=== PATIENT | male | born 1965 | race Caucasian/White ===

== ENCOUNTER 2018-12-21 04:00 | Inpatient (IN) | payer BC ==
[2018-12-21] MEDS ORDERED: Ticagrelor* 90 MG TAB PO ONE ×2 (04:03→04:09)
[2018-12-21] MEDS ORDERED: Heparin VIAL(*) 5000 UNITS/ML VIAL (FIVE THOUSAND) ONE (04:07)
--- NOTE | 2018-12-21 04:11 | ED ---
HPI Chest Pain - HPI Summary HPI Summary: STEMI called at 0352 ETA 10 minutes. The patient is a 53 y/o M arriving by ambulance with chief complaint of sudden onset mid-sternal burning and sharp CP starting at 0200 this morning. He reports that he was on his way to the ED after the pain started but was unable to handle it so his stopped the car, and they called EMS. EMS reports that the patient became unresponsive and went into Vfib so he was administered one shock back into NSR. He was also given one 324mg ASA, 4 doses of NTG, and 150mL Amiodarone. He was sating at 96% on room air before shock and then 90% after shock. He states that he had a recent similar episode of pain but the sharpness wasnt present then, and now the pain radiates into the left arm with numbness and tingling. No cardiac hx. PMHx: asthma. Current every day smoker. - History of Current Complaint Hx Obtained From: Patient, EMS Onset/Duration: Started Hours Ago - at 0200, Still Present Time of Onset: 02:00 Timing: Lasting Hours Initial Severity: Severe Current Severity: Severe Pain Intensity: 10 Pain Scale Used: 0-10 Numeric Chest Pain Location: Mid Sternal Chest Pain Radiates: Yes Chest Pain Radiates To:: Arm Character: Burning, Sharp/Stabbing Aggravating Factor(s): Nothing Alleviating Factor(s): Nothing Associated Signs and Symptoms: Positive: Chest Pain, Numbness - arm, Tingling - arm - Allergy/Home Medications Allergies/Adverse Reactions: Allergies Allergy/AdvReac Type Severity Reaction Status Date / Time nabumetone Allergy Hives Verified 12/21/18 06:00 PMH/Surg Hx/FS Hx/Imm Hx Endocrine/Hematology History: Denies: Hx Diabetes Cardiovascular History: Denies: Hx Hypertension Respiratory History: Reports: Hx Asthma - Surgical History Surgical History: None Surgery Procedure, Year, and Place: none Infectious Disease History: No Infectious Disease History: Denies: Traveled Outside the [place] in Last 30 Days - Family History Known Family History: Negative: Diabetes - Social History Lives: With Family Alcohol Use: None Hx Substance Use: No Substance Use Type: Reports: None Hx Tobacco Use: Yes Smoking Status (MU): Current Every Day Smoker Review of Systems Positive: Chest Pain - burning, sharp pain Positive: Numbness - and tingling in arms All Other Systems Reviewed And Are Negative: Yes Physical Exam - Summary Physical Exam Summary: Appearance: Well-appearing, Well-nourished, lying in bed comfortably Skin: Mildly diaphoretic, Warm, no obvious rash Eyes: sclera anicteric, no conjunctival pallor ENT: mucous membranes moist, pharynx appears normal Neck: Supple, nontender Respiratory: Clear to auscultation, no signs of respiratory distress Cardiovascular: Normal S1, S2. No murmurs. Normal distal pulses in tibial and radial bilaterally. Abdomen: Soft, nontender, normal active bowel sounds present Musculoskeletal: Normal, Strength/ROM Intact Neurological: A&Ox3, awake and alert, mentation is normal, speech is fluent and appropriate Psychiatric: affect is normal, does not appear anxious or depressed Triage Information Reviewed: Yes Vital Signs Reviewed: Yes Diagnostics - Laboratory Result Diagrams: 12/22/18 04:03 12/24/18 05:22 Lab Statement: Any lab studies that have been ordered have been reviewed, and results considered in the medical decision making process. - Radiology CXR Radiology Interpretation Completed By: ED Physician Summary of Radiographic Findings: Irregular opacities in the right lower lobe of unclear significance. ED physician has interpreted this report. Pending official read. - EKG 0404 Cardiac Rate: NL - 75 bpm EKG Rhythm: Sinus Rhythm Summary of EKG Findings: NSR at 75 bpm. Anteroseptal infarct, old. No STEMI. Chest Pain Course/Dx - Course Course Of Treatment: STEMI called at 0352 ETA 10 minutes. Patient is a 53 y/o M arriving by ambulance with cc of sudden onset mid-sternal burning and sharp CP that radiates to the left arm with numbness and tingling starting at 0200 this morning while on his way to the ED. Patient became unresponsive and EMS administered one successful shock to convert patient out of vfib. Also given one 324mg ASA, 4 doses of NTG, and 150mL Amiodarone en route. Upon physical exam , the patient exhibits mild diaphoresis. In the ED course, the patient was administered Heparin and Brilinta. Dr. Hinojosa, cardiology, in the ED upon patients arrival at 0358. EKG at 0404 reveals NSR at 75 bpm with old anteroseptal infarct, no STEMI. Chest x-ray reveals irregular opacities in the right lower lobe of unclear significance. Blood work reveals lactic acid of 4.5 , myoglobin of 299.0, and troponin of 0.10. Patient accepted for admission by Dr. Hinojosa. Patient agrees with this plan. 25 minutes of CCT. - Diagnoses Provider Diagnoses: STEMI (ST elevation myocardial infarction) During the Visit The Following Alert/Code Occurred: STEMI - called at 0352 with 10 mintues ETA - Provider Notifications Discussed Care Of Patient With: Moises Hinojosa - cardiology Time Discussed With Above Provider: 03:58 Instructed by Provider To: Other - Dr. Hinojosa in the ED upon patient's arrival. Patient accepted for admission. Discharge - Sign-Out/Discharge Documenting (check all that apply): Patient Departure - Patient is accepted for admission by Dr. Hinojosa. Patient Received Moderate/Deep Sedation with Procedure: No - Discharge Plan Condition: Stable Disposition: ADMITTED TO [facility] - Billing Disposition and Condition Condition: STABLE Disposition: Admitted to [facility] - Attestation Statements Document Initiated by Jeriibe: Yes Documenting Scribe: Violet Luz Provider For Whom Luis Armando is Documenting (Include Credential): Dr. Jordi Barber MD Scribe Attestation: Violet Acosta, scribed for Dr. Jordi Barber MD on 12/25/18 at 0203. Scribe Documentation Reviewed: Yes Provider Attestation: The documentation as recorded by the Violet whaley accurately reflects the service I personally performed and the decisions made by me, Dr. Jordi Barber MD Status of Scribe Document: Viewed
[2018-12-21] MEDS ORDERED: Heparin for STEMI(*) 5,000 UNITS/ML 1 ML VIAL IV ONE (04:17)
[2018-12-21] MEDS ORDERED: Heparin(*) 1000 UNIT/ML 10 ML VIAL CATH LAB IV ONE (04:17)
[2018-12-21] MEDS ORDERED: nitroGLYCERIN DRIP* 25,000 MCG/250 ML BTL ONE (04:18)
[2018-12-21] MEDS ORDERED: Lidocaine 1% INJ* 10 MG/ML 30 ML SDV ONE (04:18)
[2018-12-21] MEDS ORDERED: VERAPAMIL 2.5 MG/ML 2 ML VIAL ** 5 mg/2 ml ONE (04:18)
[2018-12-21] MEDS ORDERED: Heparin 2 UNITS/ML IVPREMIX* 3,000 UNIT/1,500 ML BAG IV ONE (04:19)
[2018-12-21] MEDS ORDERED: Iohexol 350 (CONTRAST) 200 ML MDV IV ONE (04:20)
[2018-12-21] MEDS ORDERED: Heparin DRIP 25,000 UNITS(*) 25,000 UNITS/500 ML BAG ONE (04:23)
[2018-12-21] MEDS ORDERED: Amiodarone 360 MG IVPREMIX* 360 MG/200 ML BAG IV ONE ×2 (04:23)
[2018-12-21] MEDS ORDERED: Heparin DRIP 25,000 UNITS(*) 25,000 UNITS/500 ML BAG IV SCH (04:30)
[2018-12-21 04:38] LABS: Activated Partial Thrombo Time 33.4 seconds (26.0-38.0); INR 0.96 (0.82-1.09)
[2018-12-21] MEDS ORDERED: Midazolam* 1 MG/ML 5 ML VIAL (5 MG) ONE (04:42)
[2018-12-21] MEDS ORDERED: fentaNYL* 50 MCG/ML 2 ML VIAL (100 MCG VIAL) ONE (04:42)
[2018-12-21 04:45] LABS: ABS Basophils 0.1 10^3/ul (0-0.2); ABS Eosinophils 0.1 10^3/ul (0-0.6); ABS Monocytes 0.5 10^3/ul (0-0.8); ABS Neutrophils 7.6 10^3/ul (1.5-7.7); Eosinophil % 1.3 %; Hematocrit 49 % (42-52); Hemoglobin 17.3 g/dL (14.0-18.0); Lymphocyte % 19.5 %; Mean Corpuscular HGB Conc 35 g/dL (31-36); Mean Corpuscular Hemoglobin 33 pg (27-31); Mean Corpuscular Volume 92 fL (80-94); Mean Platelet Volume 8.7 fL (7.4-10.4); Nucleated Red Blood Cells % 0.1; Platelet Count 236 10^3/uL (150-450); Red Blood Count 5.31 10^6 /uL (4.18-5.48); Red Cell Distribution Width 14 % (10-15); White Blood Count 10.3 10^3/uL (3.5-10.8)
[2018-12-21 04:50] LABS: ALT 18 U/L (7-52); AST 16 U/L (13-39); Albumin 4.1 g/dL (3.2-5.2); Albumin/Globulin Ratio 1.6 (1-3); Alkaline Phosphatase 91 U/L (34-104); Anion Gap 12 mmol/L (2-11); BUN/Creatinine Ratio 11.5 (8-20); Blood Urea Nitrogen 12 mg/dL (6-24); CO2 Carbon Dioxide 18 mmol/L (22-32); Calcium 9.3 mg/dL (8.6-10.3); Chloride 107 mmol/L (101-111); Creatine Kinase 71 U/L (10-223); EGFR African American 90.1 (>60); EGFR Non-African American 74.4 (>60); Globulin 2.6 g/dL (2-4); Glucose 168 mg/dL (70-100); LDL Cholesterol Direct 180 mg/dL; Sodium 137 mmol/L (135-145); Total Protein 6.7 g/dL (6.4-8.9)
[2018-12-21 04:55] LABS: CKMB ng/mL 5.3 ng/mL (0.6-6.3)
[2018-12-21] MEDS ORDERED: Acetaminophen TAB* 325 MG PO PRN ×2 (05:42→19:49)
[2018-12-21] MEDS ORDERED: Nitroglycerin TAB 0.4 MG* 0.4 MG TAB SL PRN (05:42)
[2018-12-21] MEDS ORDERED: Docusate CAP* 100 MG PO PRN (05:42)
[2018-12-21] MEDS ORDERED: Ondansetron INJ* 2 MG/ML VIAL IV PRN (05:42)
[2018-12-21] MEDS ORDERED: NS 0.9% 1000 ML** 1,000 ML IV SCH (05:45)
[2018-12-21] MEDS ORDERED: Atorvastatin* 80 MG TAB PO ONE (05:53)
[2018-12-21] MEDS: Metoprolol Tartrate TAB* 25 MG PO SCH ×2 (06:22→14:28)
[2018-12-21] MEDS ORDERED: nitroGLYCERIN DRIP* 25,000 MCG/250 ML BTL IV SCH (07:00)
[2018-12-21] MEDS ORDERED: Perflutren Lipid Microsphere* 3 ML VIAL ONE (08:35)
--- NOTE | 2018-12-21 08:55 | HP ---
CC: Dr. Michael Little* ADMISSION HISTORY AND PHYSICAL: DATE OF ADMISSION: 12/21/18 CHIEF COMPLAINT: The patient with chest discomfort. EKG in the field documenting anterior wall ST segment elevation CA with VFib arrest, successfully shocked back to sinus rhythm. HISTORY OF PRESENT ILLNESS: The patient is a 53-year-old gentleman with no prior known cardiac history. Specifically, he denies any history of myocardial infarction, congestive heart failure, or significant heart rhythm disturbance. The patient states that some 2 or 3 days ago he had developed similar episode of chest heaviness feeling that he believes occurred at nighttime. Today, at around 2 in the morning, he woke up and had significant chest heaviness and tightness. He thought he had reflux and tried antacids. It worsened to the point that he asked his to drive him to the hospital. As he was driving, the symptoms got worse. They called the paramedics. The paramedics met them in the field. They did an EKG and found a ST segment elevation anterior wall myocardial infarction. The patient subsequently had a ventricular fibrillation arrest according to the emergency room physician in the field. They shocked him back to sinus rhythm and he gained consciousness. He received aspirin full dose therapy and was brought into the emergency room. In the emergency room, he was still having chest discomfort, although a second EKG done in the field after the VFib arrest had showed marked improvement of the ST elevations. In the emergency room, this continued to be the case with a repeat EKG that showed improvement. In the emergency room, he was given Brilinta, heparin bolus, he was started on IV nitroglycerin and the risks and benefits of cardiac catheterization were explained. He understood them and wished to proceed. Cardiac risk factors include no known history of diabetes, no known history of hypertension. He states that he thinks he has an increased cholesterol, but has not been on medical management for that. He does smoke and has no family history of early coronary artery disease. PAST MEDICAL HISTORY: Includes diverticulitis for which he eventually had surgical therapy for this. He also has a history of DVT that occurred after that hospitalization when he was at bed rest following surgery. He also has history of allergies and asthma. FAMILY HISTORY: Negative for significant premature coronary artery disease according to the patient. SOCIAL HISTORY: He smokes cigarettes. He drinks alcohol. REVIEW OF SYSTEMS: Pertinent toward proceeding emergently to the cardiovascular laboratory. Negative history of hematochezia. Negative hematuria. Negative hematemesis. No history of stroke or TIA. No history of contrast allergy and no known history of kidney disease. PHYSICAL EXAMINATION GENERAL: The patient was still with chest discomfort, albeit better than when he woke up in the morning. VITAL SIGNS: When I saw him in the emergency room, blood pressure 107/73, pulse 74, respirations 20, O2 saturation 94% on room air. NECK: Had no increased JVP. Carotids had good upstroke and volume. LUNGS: Had mildly coarse breath sounds bilaterally, but no active rales, rhonchi, or wheezes. HEART: Revealed no palpable heaves or thrills. Normal S1, S2. I could not appreciate a significant systolic or diastolic murmur. ABDOMEN: Soft, nontender without organomegaly. EXTREMITIES: Without edema. The femoral pulses were intact. Radial pulses intact. NEURO: The patient seemed to be slightly lethargic, but alert enough and cognizant of everything that was going on. MUSCULOSKELETAL: He moved all extremities appropriately. PSYCHOLOGICAL: The patient with normal affect. DIAGNOSTIC STUDIES/LAB DATA: Electrocardiogram by the EMS documented ST segment elevations anteriorly; repeat by EMS showed improvement of them, but still somewhat present. In the emergency room, there were Q waves in V1 and V2 with minimal ST segment elevation with biphasic T waves in the other anterior leads with T wave inversion in I and aVL with PVCs. OVERALL ASSESSMENT: Sumanth presents now having been in the throes of an acute ST segment elevation, myocardial infarction with continued chest discomfort, albeit better and an improving EKG. Most likely, he spontaneously re-perfused, and with re-perfusion, developed ventricular fibrillation arrest, which he was successfully shocked out of and given an amiodarone bolus. We will put him on an amiodarone drip and he has already received heparin, Brilinta, and aspirin is on low-dose IV nitro and we will proceed to the cardiovascular laboratory with further management pending results of the catheterization. The risks and benefits were explained to him with his present. He understands them and is willing to proceed. [id number]/[facility] #: [id number] MTDD
[2018-12-21] MEDS ORDERED: Amiodarone 360 MG IVPREMIX* 360 MG/200 ML BAG IV SCH (10:20)
--- NOTE | 2018-12-21 10:22 | ECHO ---
*[facility]* [place] [address] Fax #: [phone] Transthoracic Echocardiogram Patient: Sumanth Nath : 1965 Study Date: 12/21/2018 Age: 53 Gender: M HR: 68 bpm Height: 67 in /170.2 cm BSA: 1.94 m^2 Weight: 181.6 lb /82.6 kg BMI: 28.5 kg/m^2 *Lumber Driver: * Jami Victoria RDCS RN *Referring Physician: * Moises Hinojosa MD *Reading Physician: * Jesus Chen MD Indications: Myocardial Infarction (new). History: Asthma. Risk factors: Current tobacco use. Labs, prior tests, procedures, and surgery: Catheterization with coronary intervention (12/21/2018). Conclusions Summary: - Left ventricle: The cavity size is normal. Wall thickness is mildly increased. Systolic function is moderately reduced. The estimated ejection fraction is 35% with wall motion abnormalities as described within the report. - Right ventricle: The cavity size is normal. Systolic function is mildly reduced. - Left atrium: The atrium is normal in size. - Mitral valve: There is mild regurgitation. - Pulmonary arteries: Systolic pressure is mildly increased, estimated to be 39 mm Hg. Recommendations: None prior for comparison at time of interpretation. Study data: Transthoracic echocardiogram. Procedure: Transthoracic echocardiography was performed. Image quality was fair. The study was technically limited due to Smoking history. Intravenous Definity 3.5 ml was administered for image enhancement. Complete 2D, spectral Doppler, and color flow Doppler. Location: Bedside. Patient status: Inpatient. Patient room number: ICU 2. Rhythm: Normal sinus rhythm. Findings Left ventricle: The cavity size is normal. Wall thickness is mildly increased. Systolic function is moderately reduced. The estimated ejection fraction is 35% with wall motion abnormalities as described within the report. Regional wall motion abnormalities: Hypokinesis of the mid-apicalanteroseptal myocardium. Hypokinesis of the mid-apicalanterolateral myocardium. Hypokinesis of the apicalinferior myocardium. Hypokinesis of the mid-apicalanterior myocardium. Hypokinesis of the apicallateral myocardium. Akinesis of the mid-apical anterior and apical myocardium; severe hypokinesis of the mid anterolateral and apical septal myocardium; moderate hypokinesis of the mid anteroseptal myocardium; mild hypokinesis of the mid inferoseptal and apical inferior myocardium. Doppler parameters are consistent with abnormal left ventricular relaxation (grade 1 diastolic dysfunction). Right ventricle: The cavity size is normal. Systolic function is mildly reduced. Left atrium: The atrium is normal in size. Right atrium: The atrium is normal in size. Mitral valve: The leaflets are mildly thickened. There is no evidence of stenosis. There is mild regurgitation. Aortic valve: Not well visualized. The valve is probably trileaflet. The leaflets are mildly thickened and mildly calcified. There is no evidence of stenosis. There is no regurgitation. Tricuspid valve: The valve is structurally normal. There is no evidence of stenosis. There is mild regurgitation. Pulmonic valve: Not well visualized. There is no evidence of stenosis. There is no significant regurgitation. Aorta: Aortic root: The aortic root is not dilated. Ascending aorta: The ascending aorta is not dilated. Aortic arch: The aortic arch is not dilated. Pericardium: There is no pericardial effusion. Pulmonary arteries: Not well visualized. Systolic pressure is mildly increased, estimated to be 39 mm Hg. Systemic veins: Inferior vena cava: The vessel is normal in size. There is (>= 50%) respiratory change in the IVC dimension. Measurements Left ventricle Value Ref Aortic valve continued Value Ref RANDI, LAX 5.1 cm 4.2 - VTI, S 24.3 cm ----- 5.8 Mean grad, S 5.0 mm Hg ----- ESD, LAX (H) 4.1 cm 2.5 - Peak grad, S 8.0 mm Hg ----- 4.0 LVOT/AV, VTI ratio 0.63 ----- FS, LAX (L) 20 % 25 - 43 PW, ED (H) 1.1 cm 0.6 - Mitral valve Value Ref 1.0 Peak E 0.75 m/sec ----- IVS/PW, ED 0.95 -------- Peak A 0.36 m/sec ----- E', lat nichelle, TDI (L) 8.1 cm/sec >=10.0 Decel time 137 ms - ---- E/e', lat nichelle, TDI 9 -------- Peak grad, D 2.2 mm Hg ---- - E', med nichelle, TDI 7.7 cm/sec >=7.0 Peak E/A ratio 2.1 - ---- E/e', med nichelle, TDI 10 -------- E', avg, TDI 7.9 cm/sec -------- Pulmonic valve Value Ref E/e', avg, TDI 9 <=14 Peak v, S 0.74 m/sec - ---- Peak grad, S 2.0 mm Hg ----- LVOT Value Ref Peak min, S 0.92 m/sec -------- Tricuspid valve Value Ref VTI, S 15.3 cm -------- TR peak v (H) 3 m/sec <=2.8 Mean grad, S 2 mm Hg -------- Peak RV-RA grad, S 36 mm Hg ----- Max TR min 3 m/sec ----- Ventricular septum Value Ref IVS, ED (H) 1.1 cm 0.6 - Aortic root Value Ref 1.0 Root diam 2.9 cm <4.1 Right ventricle Value Ref Ascending aorta Value Ref RANDI minor ax, A4C 2.5 cm 1.9 - AAo AP diam, S 3.1 cm ----- mid 3.5 Pressure, S 39 mm Hg -------- Aortic arch Value Ref Arch diam 3.1 cm ----- Left atrium Value Ref ML dim, A4C 3.9 cm -------- Decending aorta Value Ref SI dim, A4C 5.5 cm -------- Charisse peak min 0.67 m/sec ----- Vol/bsa, ES, 1-p 26 ml/m^2 12 - 37 A4C Pulmonary artery Value Ref Vol/bsa, ES, A/L 27 ml/m^2 16 - 34 Pressure, S 39.0 mm Hg ----- Right atrium Value Ref Inferior vena cava Value Ref ML dim, ES, A4C 3.1 cm 2.6 - Diam 1.5 cm ----- 4.4 SI dim, ES, A4C 4.6 cm 3.4 - 5.3 Estimated RAP 3 mm Hg -------- Aortic valve Value Ref Nichelle diam, ED 2.0 cm -------- Nichelle diam/bsa, ED 1.0 cm/m^2 -------- Peak v, S 1.43 m/sec -------- Legend: (L) and (H) zuleyka values outside specified reference range. Prepared and electronically signed by Jesus Chen MD 12/21/2018 10:21
[2018-12-21 10:55] LABS: Creatine Kinase 858 U/L (10-223)
[2018-12-21 10:58] LABS: CKMB ng/mL 138.1 ng/mL (0.6-6.3)
[2018-12-21] MEDS: Enoxaparin(*) 40 MG/0.4 ML SYR SUBCUT SCH (11:11)
[2018-12-21 11:12] LABS: Troponin I 19.24 ng/mL (<0.04)
[2018-12-21] MEDS: Captopril TAB* 12.5 MG PO SCH ×2 (11:12→14:31)
[2018-12-21] MEDS ORDERED: Metoprolol Succinate XL TAB* 25 MG PO ONE ×3 (14:20→17:19)
[2018-12-21] MEDS: Ticagrelor* 90 MG TAB PO SCH ×2 (14:31→21:03)
--- NOTE | 2018-12-21 14:35 | CATH ---
CC: Dr. Michael Little * CARDIAC CATHETERIZATION INTERVENTIONAL REPORT: DATE OF PROCEDURE: 12/21/18 - ROOM #ICU-2 INDICATION FOR PROCEDURE: The patient presents with a ST segment elevation, anterior wall myocardial infarction complicated by out of hospital ventricular fibrillation arrest, successfully shocked to sinus rhythm with episcopal of spontaneous circulation and with the patient being fully neurologically awake. The procedure was coronary arteriography, primary stenting of the proximal left anterior descending artery with a 2.75 x 12 mm long Synergy drug-eluting stent postdilated to 3.2 mm with high-pressure balloon inflation, left heart catheterization, left ventriculography. The patient was interviewed and examined in the emergency room where the risks and benefits were explained. He understood them and wished to proceed. APPROACH UTILIZED: The right radial artery was assessed under ultrasound guidance and found to be an acceptable size, and as such, this was the approach utilized. PRECARDIAC CATHETERIZATION LABORATORY RESULTS: - none present at the time of the start of the catheterization. By the end of the catheterization, laboratory results were present. Hemoglobin and hematocrit of 17.3 and 49 with a platelet count of 236,000. Sodium 137, potassium 4.0, chloride 107, bicarb 18. Troponin was 0.1. EQUIPMENT UTILIZED: 1. Radial artery sheath - a 6 Irish Glidesheath Slender. 2. Diagnostic coronary catheter was a TIG4 5 Irish catheter. 3. Guiding catheter was a 6 Irish Heartrail III IL 3.5 curved catheter. The diagnostic guidewire utilized was a 260 length [place] curved guidewire. The interventional wire utilized was a 190 cm length All Star guidewire. The stent utilized was a 2.75 x 12 mm long Synergy drug-eluting stent. 3. The post stent deployment balloon catheter was a 3.0 x 8 mm long NC Emerge balloon. 4. The closure device utilized was a regular size Vasc Band by vascular solution. MEDICATIONS GIVEN: The patient received a radial artery cocktail including 300 mcg of nitroglycerin and 3 mg of verapamil. The patient had already received heparin weight adjusted bolus in the emergency room. Local Xylocaine 1% was given. The patient already received Brilinta in the emergency room. The patient received 1.5 mg of Versed. The patient came up on an amiodarone drip at 1 mg per minute. The patient also was on a nitroglycerin drip at 2 mcg per minute. DESCRIPTION OF PROCEDURE: The patient was brought to the cardiovascular laboratory, formal time-out was performed. He was prepped and draped in sterile fashion, and under ultrasound guidance, the right radial artery was cannulated and sheath was placed. Diagnostic coronary arteriography was performed. The decision was made to intervene into the proximal portion of the left anterior descending artery. ACT was checked when the patient first got into the lab and found to be mildly subtherapeutic, and as such, an additional 3000 units of heparin was given. ACT was checked during the procedure after the additional heparin and found to be therapeutic. The guidewire was advanced down the left anterior descending artery into the diagonal branch selectively. The 2.75 x 12 mm long stent was deployed in the proximal portion of the LAD and post deployment balloon inflations to high pressure were made with a 3.0 x 8 mm long NC Emerge balloon. The artery was assessed for result following this. After that left heart catheterization was performed, with a radial pigtail catheter advanced to the ascending aorta where central aortic pressure was recorded. Catheter was passed across the aortic valve into the left ventricle. The left ventricular pressure was recorded. Left ventriculography was then performed utilizing a total of 28 cc of Omnipaque dye at a rate of 14 cc per second. The catheter was then pulled back across the aortic valve, rechecked gradient. At the end of the case, the catheter and sheath were removed and hemostasis was obtained with a Vasc Band. The total contrast used was 178 cc of Omnipaque dye, the radiation exposure included 11.7 minutes of fluoro time, the air kerma radiation was 2158 milligray , the DAP radiation was 13,500 microgray per meter squared. RESULTS: HEMODYNAMIC DATA: Left heart catheterization revealed central aortic pressure of 107/62 with a mean of 83, left ventricular pressure 112 over left ventricular end diastolic pressure of 23. CORONARY ARTERIOGRAPHY: A. Left Coronary Artery: 1. Left main - left main widely patent with mild luminal irregularity. Calcium was seen in the wall of the left main extending into the proximal portion of the circumflex and left anterior descending artery. No significant obstruction was seen. 2. Left anterior descending artery. The left anterior descending artery supplied a bifurcating first diagonal branch followed distally by some smaller caliber diagonal branches. The proximal portion of the left anterior descending artery had a critical 90% to 95% obstruction that appeared to be consistent with a dissected area. The first diagonal branch in its midportion bifurcated into a medial and lateral branch. Just prior to bifurcating, there was luminal reduction of approximately 55% noted. The lateral branch of the bifurcating diagonal branch had an ostial narrowing of 35% to 40%. The continuation of left anterior descending artery had a 35% to 40% narrowing seen in its midportion, the artery extended to the apical region and onto the distal inferior wall. 3. Circumflex artery - nondominant vessel supplying a very thin first, second, and third obtuse marginal branch. It was a moderate size mid obtuse marginal branch noted that had mild 20% narrowing seen in its proximal portion. B. Right coronary artery - a dominant vessel supplying the PDA and 3 posterior left ventricular branches including four acute marginal branches. The proximal portion had a 60% lesion seen followed by a 50% lesion seen in the midportion. The rest of the vessel did not appear to have any significant narrowing. There was minimal luminal irregularities in the distal portion of the right coronary artery. INTERVENTION INTO PROXIMAL PORTION OF LEFT ANTERIOR DESCENDING ARTERY: Successful reduction of critical 90% to 95% stenosis with primary stenting utilizing a 2.75 x 12 mm long Synergy drug-eluting stent postdilated to proximally 3.2 mm with ROSHAN-3 flow, no dissection seen, and less than 10% residual narrowing. LEFT VENTRICULOGRAPHY: Performed in the HORVATH projection, revealed marked hypokinesis of the mid-to- distal anterior wall with severe hypokinesis of the apical region. There is preservation of the proximal and mid inferior wall. The very distal inferior wall has hypokinesis. There is normal contractility of the proximal anterior wall. Overall ejection fraction appears to be approximately 35%. Of note, the dye filling was somewhat suboptimal for definitive accurate assessment. OVERALL ASSESSMENT: Successful intervention to critically stenosed proximal left anterior descending artery as described above with drug-eluting stent placement. At this point in time, aggressive medical management including dual antiplatelet therapy , high-dose statin therapy, beta-chloe, and HAROON inhibition will be pursued. Smoking cessation is critical to his ongoing cardiac well being. This will be discussed with the patient as well. We will be weaning amiodarone off over the next 12 to 24 hours as long he has no significant rhythm abnormalities. [id number]/[facility] #: [id number] [facility]
[2018-12-21] MEDS ORDERED: Metoprolol Succinate XL TAB* 25 MG PO SCH ×4 (15:00→21:00)
[2018-12-21] MEDS ORDERED: Captopril TAB* 12.5 MG PO ONE (16:01)
[2018-12-21 17:12] LABS: Creatine Kinase 889 U/L (10-223)
[2018-12-21 17:14] LABS: CKMB ng/mL 112.2 ng/mL (0.6-6.3); Troponin I 23.85 ng/mL (<0.04)
[2018-12-21] MEDS ORDERED: Spironolactone TAB* 25 MG PO SCH (18:00)
[2018-12-21] MEDS ORDERED: hydrALAZINE IV* 20 MG/ML VIAL IV SLOW PU ONE (19:40)
[2018-12-21] MEDS ORDERED: Captopril TAB* 12.5 MG PO SCH (21:00)
[2018-12-21 21:01] LABS: ABS Basophils 0.1 10^3/ul (0-0.2); ABS Eosinophils 0.1 10^3/ul (0-0.6); ABS Lymphocytes 1.8 10^3/ul (1.0-4.8); ABS Neutrophils 12.7 10^3/ul (1.5-7.7); Eosinophil % 0.3 %; Hematocrit 50 % (42-52); Hemoglobin 17.4 g/dL (14.0-18.0); Lymphocyte % 11.7 %; Mean Corpuscular HGB Conc 35 g/dL (31-36); Mean Corpuscular Hemoglobin 32 pg (27-31); Mean Corpuscular Volume 92 fL (80-94); Mean Platelet Volume 9.3 fL (7.4-10.4); Platelet Count 227 10^3/uL (150-450); Red Blood Count 5.45 10^6 /uL (4.18-5.48); Red Cell Distribution Width 14 % (10-15); White Blood Count 15.6 10^3/uL (3.5-10.8)
[2018-12-21] MEDS: Zolpidem TAB* 5 MG PO PRN (21:02)
[2018-12-21 21:05] LABS: Albumin 4.2 g/dL (3.2-5.2); Albumin/Globulin Ratio 1.6 (1-3); BUN/Creatinine Ratio 10.4 (8-20); C Reactive Protein 13.14 mg/L (<8.01); Calcium 9.4 mg/dL (8.6-10.3); EGFR African American 80.2 (>60); EGFR Non-African American 66.3 (>60); Globulin 2.6 g/dL (2-4); Total Bilirubin 0.7 mg/dL (0.2-1.0); Total Protein 6.8 g/dL (6.4-8.9)
[2018-12-21 21:26] LABS: Urine Appearance Clear; Urine Bilirubin Negative (Negative); Urine Blood Negative (Negative); Urine Color Yellow; Urine Glucose Negative (Negative); Urine Ketones Negative (Negative); Urine Nitrite Negative (Negative); Urine Protein Negative (Negative); Urine Specific Gravity 1.015 (1.010-1.030); Urine Urobilinogen Negative (Negative)
[2018-12-21 21:50] LABS: Creatine Kinase 728 U/L (10-223)
[2018-12-21 21:53] LABS: Troponin I 19.73 ng/mL (<0.04)
[2018-12-21 21:54] LABS: CKMB ng/mL 73.9 ng/mL (0.6-6.3)
--- NOTE | 2018-12-21 23:33 | CONS ---
CONSULTATION REPORT: DATE OF CONSULT: 12/21/18 ADDENDUM: Please note that the patient's lactic acid was at 2.4. Please note that his initial lactic acid was at 4.5 at his admission. This is much improved. I believe this is a resolution of his initial lactic acidosis after a cardiac arrest/V-tach. I do not believe at this point, the patient's lactic acidosis is due to severe sepsis. [id number] #: [id number] MTDD
[2018-12-21] MEDS: Mometasone 220 MCG MDI INH SCH (23:55)
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
[2018-12-22] MEDS: Mometasone 220 MCG MDI INH SCH ×3 (01:30→19:08)
[2018-12-22] MEDS ORDERED: NS 0.9% 250 ML* 250 ML IVPB ONE (02:00)
[2018-12-22 04:22] LABS: ABS Basophils 0.1 10^3/ul (0-0.2); ABS Eosinophils 0.1 10^3/ul (0-0.6); ABS Lymphocytes 2.4 10^3/ul (1.0-4.8); ABS Monocytes 0.9 10^3/ul (0-0.8); ABS Neutrophils 9.4 10^3/ul (1.5-7.7); Eosinophil % 0.7 %; Hematocrit 48 % (42-52); Hemoglobin 16.4 g/dL (14.0-18.0); Lymphocyte % 18.3 %; Mean Corpuscular HGB Conc 34 g/dL (31-36); Mean Corpuscular Hemoglobin 32 pg (27-31); Mean Corpuscular Volume 93 fL (80-94); Mean Platelet Volume 9.1 fL (7.4-10.4); Platelet Count 192 10^3/uL (150-450); Red Blood Count 5.14 10^6 /uL (4.18-5.48); Red Cell Distribution Width 13 % (10-15); White Blood Count 12.9 10^3/uL (3.5-10.8)
[2018-12-22 04:32] LABS: Albumin 3.7 g/dL (3.2-5.2); Albumin/Globulin Ratio 1.5 (1-3); BUN/Creatinine Ratio 10.9 (8-20); Calcium 9.3 mg/dL (8.6-10.3); EGFR African American 93.1 (>60); Globulin 2.5 g/dL (2-4); HDL Cholesterol 38.8 mg/dL; Potassium 4.3 mmol/L (3.5-5.0); Total Bilirubin 1.1 mg/dL (0.2-1.0); Total Protein 6.2 g/dL (6.4-8.9)
[2018-12-22 06:16] LABS: CKMB ng/mL 27.4 ng/mL (0.6-6.3); Troponin I 14.05 ng/mL (<0.04)
[2018-12-22] MEDS ORDERED: NS 0.9% 250 ML* 250 ML IV ONE (06:35)
[2018-12-22] MEDS ORDERED: NS 0.9% 1000 ML** 1,000 ML IV ONE (06:55)
[2018-12-22] MEDS: Aspirin 81 mg CHEW TAB* 81 MG TAB.CHEW PO SCH (08:24)
[2018-12-22] MEDS: Montelukast Sodium TAB* 10 MG PO SCH (08:25)
[2018-12-22] MEDS: Ticagrelor* 90 MG TAB PO SCH ×2 (08:25→21:36)
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
[2018-12-22] MEDS ORDERED: Metoprolol Succinate XL TAB* 25 MG PO SCH (09:00)
[2018-12-22] MEDS: Enoxaparin(*) 40 MG/0.4 ML SYR SUBCUT SCH (12:07)
[2018-12-22] MEDS: Atorvastatin* 80 MG TAB PO SCH (17:18)
[2018-12-22] MEDS: Zolpidem TAB* 5 MG PO PRN (21:56)
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
[2018-12-23 08:52] LABS: BUN/Creatinine Ratio 14.1 (8-20); Calcium 8.3 mg/dL (8.6-10.3); EGFR African American 95.3 (>60); EGFR Non-African American 78.8 (>60); Potassium 3.7 mmol/L (3.5-5.0)
[2018-12-23] MEDS: Ticagrelor* 90 MG TAB PO SCH ×2 (09:26→20:48)
[2018-12-23] MEDS: Aspirin 81 mg CHEW TAB* 81 MG TAB.CHEW PO SCH (09:26)
[2018-12-23] MEDS: Montelukast Sodium TAB* 10 MG PO SCH (09:26)
[2018-12-23] MEDS: Captopril TAB* 12.5 MG PO SCH ×2 (10:30→22:59)
[2018-12-23] MEDS: Enoxaparin(*) 40 MG/0.4 ML SYR SUBCUT SCH (12:24)
[2018-12-23] MEDS ORDERED: Metoprolol Tartrate TAB* 25 MG PO ONE (15:00)
[2018-12-23] MEDS: Atorvastatin* 80 MG TAB PO SCH (15:25)
[2018-12-23] MEDS: Mometasone 220 MCG MDI INH SCH (19:20)
[2018-12-24 06:02] LABS: BUN/Creatinine Ratio 16.1 (8-20); Calcium 9.2 mg/dL (8.6-10.3); EGFR African American 77.8 (>60); EGFR Non-African American 64.3 (>60)
[2018-12-24] MEDS ORDERED: Metoprolol Succinate XL TAB* 25 MG PO SCH (09:00)
--- NOTE | 2018-12-24 09:05 | ECHO ---
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 History: Asthma. Risk factors: Current tobacco use. Labs, prior tests, procedures, and surgery: Catheterization (12/21/2018). Performed during the current admission. There was a stenosis which was treated with a stent. Conclusions Summary: - Left ventricle: The cavity size is normal. Wall thickness is mildly increased. Systolic function is at the lower limits of normal. The estimated ejection fraction is 50-55%. Hypokinesis of the apical myocardium seen on 4 chamber view, small focal area. - Right ventricle: Systolic function is normal. - Compared with prior echocardiogram of 12/21/18, ejection fraction has improved from 35%, hypokinetic area reduced, right ventricle systolic function has normalized. Limited study therefore further comparison can't be made. Study data: Transthoracic echocardiogram, limited study. Procedure: Transthoracic echocardiography was performed. Image quality was fair. Location: Bedside. Patient status: Inpatient. Patient room number: 431. Rhythm: Bradycardia. Findings Left ventricle: The cavity size is normal. Wall thickness is mildly increased. Systolic function is at the lower limits of normal. The estimated ejection fraction is 50-55%. Regional wall motion abnormalities: Hypokinesis of the apical myocardium seen on 4 chamber view, small focal area. Right ventricle: The cavity size is normal. Systolic function is normal. Pericardium: A prominent pericardial fat pad is present. There is no significant pericardial effusion. Prepared and electronically signed by Sammie Diallo MD 12/24/2018 09:04
[2018-12-24] MEDS: Ticagrelor* 90 MG TAB PO SCH (09:25)
[2018-12-24] MEDS: Aspirin 81 mg CHEW TAB* 81 MG TAB.CHEW PO SCH (09:25)
[2018-12-24] MEDS: Montelukast Sodium TAB* 10 MG PO SCH (09:26)
--- NOTE | 2018-12-24 11:39 | DS ---
CC: Dr. Michael Little MD* DISCHARGE SUMMARY: DATE OF ADMISSION: 12/21/18 DATE OF DISCHARGE: 12/24/18 FINAL DIAGNOSIS: Gqtco-EQ-cpbozza elevation anterior wall myocardial infarction. SECONDARY DIAGNOSES: 1. Stenotic coronary artery disease. 2. Glucose intolerance. 3. Hyperlipidemia. 4. Significant history of smoking. DISCHARGE MEDICATIONS: 1. Aspirin 81 mg a day. 2. Atorvastatin 80 mg a day. 3. Metoprolol succinate 12.5 mg once a day. 4. Asmanex 1 puff q.p.m. 5. Singulair 10 mg daily. 6. Nitroglycerin p.r.n. 7. Ticagrelor 90 mg twice a day. HOSPITAL COURSE: The patient is a 53-year-old gentleman admitted to the hospital in throes of an acute ST segment elevation anterior wall myocardial infarction. Please refer to the H and P for complete details. Of note, he had a suffered and out of hospital V-Fib arrest in the presence of EMS, who quickly stabilized him after defibrillation with return of spontaneous cardiac circulation and full mentation. He was brought to the cardiovascular laboratory and underwent cardiac catheterization emergently on 12/21/18. Cardiac catheterization revealed the presence of a critical 90% to 95% dissected area in the proximal LAD, for which he underwent successful stenting with a 2.75 x 12 mm long Synergy drug-eluting stent that was post-dilated with a larger balloon sizes to obtain 3.2 mm with ROSHAN 3 flow. No dissection seen and less than 10% residual narrowing. Of note , the cardiac catheterization revealed he had moderate disease in his right coronary artery with a 60% proximal lesion followed by 50% lesion seen in the mid portion. The rest of the vessel had no significant disease. The circumflex had mild disease. Left ventriculography had shown marked hypokinesis of the mid to distal anterior wall, severe hypokinesis to akinesis of the apical region with an overall EF of 35%, although it was somewhat suboptimal contrast filling. He underwent a transthoracic echocardiogram on 12/21/18, which demonstrated an overall EF of 35% with focal wall motion abnormality present from the LAD transient occlusion. He was placed on medical management and initially due to hypertension, he was aggressively placed on beta-chloe and Prince inhibition. Within 24 hours, however, his blood pressure came down dramatically to the point where most medications had to be held and eventually he had low dose beta-chloe reinstituted and low dose PRINCE inhibitor. He underwent a limited transthoracic echocardiogram on 12/24/18 (the day of discharge) and was found to have marked improvement of the LV function with now an EF of 50% to 55% with only hypokinesis of a small apical region. The right ventricular systolic function had apparently normalized as well. Given these findings, he was up and about without significant symptoms. PHYSICAL EXAMINATION: On the day of discharge revealed pleasant gentleman in no acute distress. Blood pressure 130/71, pulse is 50, respirations 14, O2 saturation 96%. Neck was supple. There was no increased JVP. Carotid with good upstroke and volume without bruits. Conjunctivae were pink. Sclerae clear. Lungs revealed no accessory muscle usage. There was fair excursion. No active rales, rhonchi or significant wheeze present. Heart revealed a regular rate and rhythm, bradycardic in nature. No significant systolic or diastolic murmur. Abdomen was soft, nontender without organomegaly. Extremities were without clubbing, cyanosis or dorinda pitting edema. Neuro: The patient is alert and oriented with normal mentation. Musculoskeletal: The patient with normal gait. Psychiatric: The patient with normal affect. DIAGNOSTIC STUDIES/LAB DATA: Laboratory results during the hospitalization revealed a peak CPK of 889 with a quick peak, a peak troponin of 23.85. EKG during the course of the hospitalization had showed eventual T-wave inversions with a bradycardia. Initial QT prolongation that over time narrowed significantly. T- wave inversion was present even on the day of discharge. Incomplete EKG was performed. There were no definitive Q-waves noted. Other laboratory results on the day of discharge included, a sodium of 138, potassium 4.0, chloride 105, bicarb 27, BUN and creatinine of 19 and 1.18. DISCHARGE PLAN: The patient was up and walking in the hallways completely asymptomatic. The patient will be discharged to home in stable condition. He has a scheduled followup appointment to see my partner, Dr. Holly Chan within the next 5 days and we will set him up with a primary labor economics teacher at that time to decide on further workup of residual coronary artery disease involving the right coronary artery as described above. He may need to be placed on medication for blood pressure control if it increases as an outpatient. He will follow up as well with Dr. Michael Little, his primary care physician for help with smoking cessation. He was given an educational booklet as well as a stent card and a free one-month supply of Brilinta. The importance of dual antiplatelet therapy, smoking cessation and seeking immediately medical attention was reviewed with him at length. He understands this. [id number]/[facility] #: [id number] MTDD
[2018-12-24 12:21] VITALS: BP 106/68
== END 2018-12-24 12:49 | disposition home or self-care (01) | DRG 174 ==
LOC: ED 04:00 → CHICATH 04:32 → ICU 05:54 → MEDTELE 12-23 14:18
PROVIDERS: ADMIT Internal Medicine Cardiovascular Disease; ATTEND Internal Medicine Cardiovascular Disease
PROC: B2111ZZ Fluoroscopy of Multiple Coronary Arteries using Low Osmolar Contrast (ICD-10-PCS; 2018-12-21)
PROC: B2151ZZ Fluoroscopy of Left Heart using Low Osmolar Contrast (ICD-10-PCS; 2018-12-21)
PROC: 4A023N7 Measurement of Cardiac Sampling and Pressure, Left Heart, Percutaneous Approach (ICD-10-PCS; 2018-12-21)
PROC: 027034Z Dilation of Coronary Artery, One Artery with Drug-eluting Intraluminal Device, Percutaneous Approach (ICD-10-PCS; principal; 2018-12-21 04:30)
DX: I21.09 ST elevation (STEMI) myocardial infarction involving other coronary artery of anterior wall (principal); I25.10 Atherosclerotic heart disease of native coronary artery without angina pectoris; J45.909 Unspecified asthma, uncomplicated; R50.9 Fever, unspecified; F17.210 Nicotine dependence, cigarettes, uncomplicated; E74.39 Other disorders of intestinal carbohydrate absorption; R73.9 Hyperglycemia, unspecified; I95.9 Hypotension, unspecified; R00.1 Bradycardia, unspecified; E78.5 Hyperlipidemia, unspecified; Z79.82 Long term (current) use of aspirin; Z79.02 Long term (current) use of antithrombotics/antiplatelets; Z72.89 Other problems related to lifestyle; Z86.718 Personal history of other venous thrombosis and embolism; Z80.0 Family history of malignant neoplasm of digestive organs; Z88.8 Allergy status to other drugs, medicaments and biological substances
CPT/HCPCS: 36415; 71045; 76937; 80048; 80053; 80061; 81003; 82550; 82553; 83036; 83605; 83721; 83874; 83880; 84484; 85025; 85347; 85610; 85730; 86140; 87040; 87641; 93005; 93306; 93308; 94640; 99156; 99157; 99285; 99406; A9270-GY; C1725; C1769; C1876; C8929; C9606-LD; J0282; J0360; J1644; J1650; J2250; J3010

== ENCOUNTER 2019-07-12 08:29 | Emergency (ER) | payer SELFPAY ==
[2019-07-12 08:58] VITALS: BP 133/88
[2019-07-12] MEDS ORDERED: Tetracaine 0.5% OPTH.SOL 4 ML* 1 DROP BTL RIGHT EYE ONE (09:11)
[2019-07-12] MEDS ORDERED: Fluorescein Sodium TOPICAL* 1 MG TEST STRIP OPHTHALMIC ONE (09:58)
--- NOTE | 2019-07-12 10:14 | UC ---
Eye Complaint HPI - HPI Summary HPI Summary: 54-year-old male comes in with a chief complaint of a foreign body in the right eye. At work yesterday he had an onset of feeling of something in his eye. No change in vision. Does not wear contacts. - History of Current Complaint Chief Complaint: UCEye Stated Complaint: FOREIGN BODY IN EYE Time Seen by Provider: 07/12/19 09:52 Pain Intensity: 5 - Allergies/Home Medications Allergies/Adverse Reactions: Allergies Allergy/AdvReac Type Severity Reaction Status Date / Time nabumetone Allergy Hives Verified 12/21/18 06:00 Home Medications: Home Medications Montelukast Sodium TAB* [Singulair 5 mg TAB*] 10 mg PO DAILY 04/08/16 [History Confirmed 07/12/19] Albuterol HFA INHALER* [Ventolin HFA Inhaler*] 2 puff INH Q4H PRN 12/21/18 [ History Confirmed 07/12/19] Aspirin 81 mg CHEW TAB* 81 mg PO DAILY tab.chew 12/24/18 [Rx Confirmed 07/12/19 ] Atorvastatin* [Lipitor 80 MG*] 80 mg PO 1700 #30 tab 12/24/18 [Rx Confirmed 09/25] Metoprolol Succinate XL TAB* [Toprol XL TAB*] 12.5 mg PO DAILY #30 tab.xl [Rx Confirmed 07/12/19] Nitroglycerin TAB 0.4 MG* 0.4 mg SL Q5M PRN #15 tab 12/24/18 [Rx Confirmed 07/11] Ticagrelor* [Brilinta 90 MG*] 90 mg PO BID #60 tab 12/24/18 [Rx Confirmed ] Famotidine TAB* [Pepcid 20 MG TAB*] 1 tab PO DAILY 07/12/19 [History Confirmed 07/12/19] Fluticasone/Vilanterol MDI(NF) [Breo Ellipta MDI 200/25(NF)] 07/12/19 [History] Fluticasone/Vilanterol MDI(NF) [Breo Ellipta MDI 200/25(NF)] 1 puff INH DAILY [History Confirmed 07/12/19] Losartan Potassium 1 tab PO DAILY 07/12/19 [History Confirmed 07/12/19] PMH/Surg Hx/FS Hx/Imm Hx Previously Healthy: Yes Endocrine History: Dyslipidemia Cardiovascular History: Cardiac Disease, Hypertension GI/ History: Gastroesophageal Reflux - Surgical History Surgical History: Yes Surgery Procedure, Year, and Place: rupt divrtivculitis,punchured lung left, hernia,vasectomy - Family History Known Family History: Negative: Diabetes - Social History Alcohol Use: Rare Substance Use Type: None Smoking Status (MU): Former Smoker - Immunization History Most Recent Influenza Vaccination: n/a Most Recent Pneumonia Vaccination: n/a Review of Systems All Other Systems Reviewed And Are Negative: Yes Constitutional: Positive: Negative Skin: Positive: Negative Eyes: Positive: Other - see hpi ENT: Positive: Negative Respiratory: Positive: Negative Cardiovascular: Positive: Negative Gastrointestinal: Positive: Negative Motor: Positive: Negative Neurovascular: Positive: Negative Musculoskeletal: Positive: Negative Neurological/Mental Status: Positive: Negative Psychological: Positive: Negative Is Patient Immunocompromised?: No Physical Exam Triage Information Reviewed: Yes Appearance: Well-Appearing, No Pain Distress, Well-Nourished Vital Signs: Initial Vital Signs Temp 98.8 F 07/12/19 08:55 Pulse 59 07/12/19 08:55 Resp 18 07/12/19 08:55 BP 133/88 07/12/19 08:55 Pulse Ox 100 07/12/19 08:55 Vital Signs Reviewed: Yes Eyes: Positive: Other: - With fluorescein stain and tetracaine examination I see a 1 mm black foreign body over the iris in the 9 o'clock position. PERRLA EOMI. No hyphema. I attempted to remove it with a cotton tipped swab but was unable to remove the foreign body. Neck: Positive: Supple Respiratory: Positive: No respiratory distress Musculoskeletal: Positive: Strength Intact, ROM Intact Neurological: Positive: Alert Psychological: Positive: Age Appropriate Behavior Skin Exam: Normal Eye Complaint Course/Dx - Course Course Of Treatment: I spoke with earlier Associates and they can see the patient now in their office for the foreign body that I was unable to remove. - Differential Dx/Diagnosis Provider Diagnosis: Foreign body of left eye Discharge ED - Sign-Out/Discharge Documenting (check all that apply): Patient Departure All imaging exams completed and their final reports reviewed: No Studies - Discharge Plan Condition: Stable Disposition: HOME Patient Education Materials: Eye Foreign Body (ED) Referrals: Michael Little MD [Primary Care Provider] - [facility] [Provider Group] Gagandeep Dooley MD [Medical Doctor] - Additional Instructions: GO DIRECTLY TO [facility], OPTHALMOLOGY NOW. - Billing Disposition and Condition Condition: STABLE Disposition: Home
== END 2019-07-12 10:20 | disposition home or self-care (01) ==
LOC: UCEAST 08:29
DX: T15.92XA Foreign body on external eye, part unspecified, left eye, initial encounter (principal); Z88.6 Allergy status to analgesic agent; Z87.891 Personal history of nicotine dependence; X58.XXXA Exposure to other specified factors, initial encounter; Y92.9 Unspecified place or not applicable
CPT/HCPCS: 99211; A9270-GY; G0463